=== PATIENT | female | born 1995 | race Two or more races ===

== ENCOUNTER 2023-12-14 14:00 | Emergency (ER) | payer OTHER ==
[~2023-12-14] VITALS: Ht 162.6 cm; Wt 73.0 kg
[2023-12-14 14:34] VITALS: TEMP 98
[2023-12-14 15:26] LABS: BASOPHILS % (AUTO) 0.7 % (0.0-2.0); EOSINOPHILS % (AUTO) 0.8 % (1.0-6.0); HEMATOCRIT 44.5 % (36-46); HEMOGLOBIN 15.1 g/dL (12.0-16.0); LYMPHOCYTES # (AUTO) 3.2 K/uL (1.0-4.8); LYMPHOCYTES % (AUTO) 24.1 % (22.0-44.0); MEAN CORPUSCULAR HEMOGLOBIN 33.4 pg (26.0-34.0); MEAN CORPUSCULAR VOLUME 98 fL (80-100); MONOCYTES # (AUTO) 1.3 K/uL (0.1-1.0); MONOCYTES % (AUTO) 10.2 % (2.0-9.0); NEUTROPHILS # (AUTO) 8.4 K/uL (1.8-7.7); NEUTROPHILS % (AUTO) 64.2 % (40.0-70.0); PLATELET COUNT (AUTO) 265 K/uL (150-450); RED BLOOD CELL COUNT(AUTO) 4.53 MIL/uL (4.00-5.20); RED CELL DISTRIBUTION WIDTH 22.8 % (11.5-14.5); WHITE BLOOD COUNT (AUTO) 13.1 K/uL (4.5-11.0)
[2023-12-14 15:35] LABS: ANION GAP 16 mmol/L (8-16); CALCIUM, TOTAL 8.6 mg/dL (8.8-10.5); CARBON DIOXIDE 21 mmol/L (22-29); CHLORIDE 103 mmol/L (98-107); CREATININE 1.37 mg/dL (0.60-1.30); GLOMERULAR FILTR. RATE CALC 46 mL/min (>60); GLUCOSE,RANDOM 79 mg/dL (70-110); POTASSIUM 3.6 mmol/L (3.5-5.1); SODIUM SERUM 140 mmol/L (136-145); UREA NITROGEN, BLOOD 17 mg/dL (7-18)
[2023-12-14 15:39] LABS: INR 1.4 (0.9-1.1)
[2023-12-14 15:44] LABS: ALCOHOL, BLOOD (SERUM) < 3 mg/dL (0-10)
[2023-12-14 15:45] LABS: ALANINE AMINOTRANSFERASE 158 U/L (12-78); ALBUMIN 1.9 g/dL (3.4-5.0); BILIRUBIN,TOTAL 24.6 mg/dL (0.1-1.0); LIPASE 32 U/L (16-77); TOTAL PROTEIN, SERUM 7.1 g/dL (6.4-8.2)
[2023-12-14 15:50] LABS: ASPARTATE AMINOTRANSFERASE 1245 U/L (15-37)
[2023-12-14 16:03] LABS: RBC MORPHOLOGY COMMENT ABNORMAL RBC MORPH
[2023-12-14 16:06] LABS: ALKALINE PHOSPHATASE 1051 U/L (46-116)
[2023-12-14 16:07] LABS: COVID AG,FIA SOURCE NASAL SWAB
[2023-12-14 16:29] LABS: SARS-COV2 (COVID) ANTIGEN,FIA Negative (Negative)
[2023-12-14 21:45] VITALS: BP 109/73; PULSE 105; RESP 18
[2023-12-15 12:06] LABS: HEPATITIS A ANTIBODY IGM Negative (Negative); HEPATITIS B CORE IGM Negative (Negative); HEPATITIS C AB (EIA) Non Reactive (Non Reactive)
== END 2023-12-14 22:47 | disposition short-term general hospital (02) ==
LOC: EMS 14:01
DX: K72.00 Acute and subacute hepatic failure without coma (principal); E44.0 Moderate protein-calorie malnutrition; K76.9 Liver disease, unspecified; Z85.9 Personal history of malignant neoplasm, unspecified; Z20.822 Contact with and (suspected) exposure to COVID-19
CPT/HCPCS: 99285; 76700; 71045; 87426; 80053; 82248; 83690; 84703; 85025; 85610; 85730; 36415; 80074; 93005; G0480